=== PATIENT | female | born 1960 | race Caucasian/White ===

== ENCOUNTER 2022-01-20 16:02 | Emergency (ER) | payer OTHER ==
[2022-01-20 16:54] LABS: Epithelial Cells RARE /HPF (FEW); Mucus SLIGHT /HPF (NEGATIVE)
[2022-01-20 16:54] LABS: Absolute Neutrophil Ct (ANC) 7.33 x10^3/uL (1.4-6.9); Basophil (Absolute #) 0.04 x10^3/uL (0-0.4); Hematocrit 34.8 % (35-47); Hemoglobin 10.9 g/dL (12.0-16.0); Lymphocyte (Absolute #) 1.78 x10^3/uL (1.0-4.6); Mean Cell Volume 87.9 fL (78-100); Mean Corpuscular Hemoglobin 27.5 pg (26-32); Mean Corpuscular Hgb Concent. 31.3 g/dL (32-36); Mean Platelet Volume 9.6 fL (7.5-11.0); Monocyte (Absolute #) 0.56 x10^3/uL (0.0-1.3); Monocytes % 5.7 % (0.0-12.0); Neutrophil % 74.3 % (36.0-66.0); Platelet Count 268 x10^3/uL (150-450); Red Blood Count 3.96 x10^6/uL (4.1-5.4); Red Cell Distribution Width 13.9 % (11.5-14.0); White Blood Count 9.9 x10^3/uL (4.0-10.5)
[2022-01-20 16:55] LABS: Appearance CLEAR (CLEAR); Bilirubin NEGATIVE (NEGATIVE); Glucose NEGATIVE (NEGATIVE); Ketones NEGATIVE (NEGATIVE); Nitrite NEGATIVE (NEGATIVE); Protein,Urine Dip NEGATIVE (Negative); RBC SMALL Ery/ul (0-5); Urobilinogen 0.2 mg/dL (0-1)
[2022-01-20 16:56] LABS: Dipstick done @ ? MAIN LAB; Urine Cultured Indicated? YES
[2022-01-20] MEDS ORDERED: TORAdol 30 mg Injection IV ONE (16:58)
[2022-01-20] MEDS ORDERED: Sodium Chloride 0.9% 1000 ML 1,000 ML IV STA (16:58)
--- NOTE | 2022-01-20 17:01 | ERPHSYRPT ---
- History of Present Illness Time Seen by Provider: 01/20/22 16:19 Historian: patient Exam Limitations: no limitations Patient Subjective Stated Complaint: pt states "I have a history of kidney stones. I think I have one again." Triage Nursing Assessment: pt ambulated into the er; pt is axo x4; c/o rt flank pain; pt states 7/10; abd is round, soft; tenderness to RLQ and rt flank region; active bowel sounds in all quads; tachycardic; skin PDW Physician History: 61 years old female presented in the ER with chief complaint of right flank pain since yesterday, moderate intensity, sharp in nature, radiating to right gr oin/suprapubic area, aggravated with movements, activity and better with resting, associated with dysuria. No fever or chills reported. Does report history of kidney stones. Timing/Duration: yesterday, gradual onset, worse Activities at Onset: rest Quality: sharpness Abdominal Pain Onset Location: flank Pain Radiation: groin Severity of Pain-Max: moderate Severity of Pain-Current: moderate Modifying Factors: Improves With: rest. Worsens With: position Associated Symptoms: back, nausea, No vomiting Previous symptoms: no prior history Allergies/Adverse Reactions: No Known Drug Allergies Allergy (Unverified 01/20/22 16:25) Home Medications: Albuterol 2.5 mg/0.5 ml [PROVENTIL Solution 2.5 MG/0.5 ML] 2.5 mg IH Q6HPRN PRN 06/18/21 [History] Albuterol Sulfate [Proair Hfa] 8.5 gm IH Q4-6HPRN PRN 06/18/21 [History] Citalopram Hydrobromide 20 mg* [ceLEXa 20 MG] 10 mg PO DAILY 06/18/21 [History] Loratadine 10 mg [Claritin 10 mg] 10 mg PO DAILY 06/18/21 [History] Meclizine HCl 25 mg [Antivert 25 mg] 25 mg PO DAILY 06/18/21 [History] Ondansetron ODT 4 MG [Zofran Odt 4 mg] 4 mg PO DAILY PRN PRN 06/18/21 [History] Hx Tetanus, Diphtheria Vaccination/Date Given: Yes Hx Influenza Vaccination/Date Given: No Hx Pneumococcal Vaccination/Date Given: No Travel Risk - International Travel Have you traveled outside of the country in past 3 weeks: No - Coronavirus Screening Are you exhibiting any of the following symptoms?: No Close contact with a COVID-19 positive Pt in past 14-21 Days: No - Vaccine Status Have you recieved a Covid-19 vaccination: Yes 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 - Vaccination Dates Date of 2cond Vaccination (if applicable): 2020 - Review of Systems Constitutional: No Symptoms Eyes: No Symptoms Ears, Nose, & Throat: No Symptoms Respiratory: No Symptoms Cardiac: No Symptoms Abdominal/Gastrointestinal: Abdominal Pain Genitourinary Symptoms: Dysuria Musculoskeletal: Back Pain Skin: No Symptoms Neurological: No Symptoms Psychological: No Symptoms Endocrine: No Symptoms Hematologic/Lymphatic: No Symptoms Immunological/Allergic: No Symptoms - Past Medical History Pertinent Past Medical History: Yes Neurological History: No Pertinent History Cardiac History: No Pertinent History Respiratory History: Asthma, Sleep Apnea Endocrine Medical History: No Pertinent History Musculoskeletal History: Arthritis, Degenerative Disk Disease, Fractures Psycho-Social History: Depression Other Medical History: FX LEFT THUMB >5 YEARS AGO, DEPRESSION, kidney stones - Past Surgical History Past Surgical History: Yes Neuro Surgical History: No Pertinent History Cardiac: No Pertinent History Respiratory: No Pertinent History Gastrointestinal: Appendectomy, Cholecystectomy Genitourinary: No Pertinent History Musculoskeletal: No Pertinent History Female Surgical History: Tubal Ligation - Social History Smoking Status: Never smoker Exposure to second hand smoke: No Drug Use: none Patient Lives Alone: No - Nursing Vital Signs Nursing Vital Signs: Initial Vital Signs Temperature 99.6 F 01/20/22 16:28 Pulse Rate 118 H 01/20/22 16:28 Respiratory Rate 16 01/20/22 16:28 Blood Pressure 111/72 01/20/22 16:28 O2 Sat by Pulse Oximetry 95 01/20/22 16:28 Pain Scale Pain Intensity 4 - Physical Exam General Appearance: no apparent distress, alert Eye Exam: PERRL/EOMI Ears, Nose, Throat Exam: normal ENT inspection Neck Exam: normal inspection, supple, full range of motion Respiratory Exam: normal breath sounds, lungs clear Cardiovascular Exam: regular rate/rhythm, normal heart sounds Gastrointestinal/Abdomen Exam: soft, normal bowel sounds, tenderness (Right flank, suprapubic area), No guarding Back Exam: normal inspection, normal range of motion, CVA tenderness (Right side) Extremity Exam: normal inspection, normal range of motion Neurologic Exam: alert, oriented x 3, normal mood/affect Skin Exam: normal color SpO2 Interpretation: normal SpO2: 95 O2 Delivery: Room Air Ordered Tests: Active Orders 24 hr Category Date Time Status ABDOMEN AND PELVIS W/0 CONTRAS [CT] Stat Exams 01/20/22 16:47 Completed CBC W DIFF Stat Lab 01/20/22 16:47 Completed CMP Stat Lab 01/20/22 16:47 Completed CULTURE,URINE Stat Lab 01/20/22 16:48 Received LIPASE Stat Lab 01/20/22 16:47 Completed UA W/RFX CULTURE Stat Lab 01/20/22 16:48 Completed Medication Summary Discontinued Medications Generic Name Dose Route Start Last Admin Trade Name Freq PRN Reason Stop Dose Admin Sodium Chloride 1,000 mls @ 999 mls/hr 01/20/22 16:58 01/20/22 18:33 Sodium Chloride 0.9% 1000 Ml IV 01/20/22 17:58 Infused .Q1H1M STA Infusion Sodium Chloride Confirm 01/20/22 17:19 Sodium Chloride 0.9% 1000 Ml Administered 01/20/22 17:20 Dose 1,000 mls @ ud .ROUTE .STK-MED ONE Ketorolac Tromethamine 30 mg 01/20/22 16:58 01/20/22 17:21 Ketorolac Tromethamine 30 Mg/Ml Inj IV 01/20/22 16:59 30 mg STAT ONE Administration Ketorolac Tromethamine Confirm 01/20/22 17:19 Ketorolac Tromethamine 30 Mg/Ml Inj Administered 01/20/22 17:20 Dose 30 mg .ROUTE .STK-MED ONE Levofloxacin 500 mg 01/20/22 17:55 01/20/22 18:24 Levofloxacin 500 Mg Tablet PO 01/20/22 17:56 500 mg STAT ONE Administration Levofloxacin Confirm 01/20/22 18:24 Levofloxacin 500 Mg Tablet Administered 01/20/22 18:25 Dose 500 mg .ROUTE .STK-MED ONE Metronidazole 500 mg 01/20/22 17:55 01/20/22 18:24 Metronidazole 500 Mg Tablet PO 01/20/22 17:56 500 mg STAT ONE Administration Metronidazole Confirm 01/20/22 18:24 Metronidazole 500 Mg Tablet Administered 01/20/22 18:25 Dose 500 mg .ROUTE .STK-MED ONE Lab/Rad Data: Laboratory Result Diagrams 01/20/22 16:47 01/20/22 16:47 Laboratory Results 01/20/22 01/20/22 01/20/22 Range/Units 16:48 16:47 16:47 WBC 9.9 (4.0-10.5) x10^3/uL RBC 3.96 L (4.1-5.4) x10^6/uL Hgb 10.9 L (12.0-16.0) g/dL Hct 34.8 L (35-47) % MCV 87.9 (78-100) fL MCH 27.5 (26-32) pg MCHC 31.3 L (32-36) g/dL RDW 13.9 (11.5-14.0) % Plt Count 268 (150-450) x10^3/uL MPV 9.6 (7.5-11.0) fL Gran % 74.3 H (36.0-66.0) % Immature Gran % (Auto) 0.6 H (0.00-0.4) % Nucleat RBC Rel Count 0.0 (0.00-0.1) % Eos # (Auto) 0.10 (0-0.5) x10^3/uL Immature Gran # (Auto) 0.06 H (0.00-0.03) x10^3u/L Absolute Lymphs (auto) 1.78 (1.0-4.6) x10^3/uL Absolute Monos (auto) 0.56 (0.0-1.3) x10^3/uL Absolute Nucleated RBC 0.00 (0.00-0.01) x10^3u/L Lymphocytes % 18.0 L (24.0-44.0) % Monocytes % 5.7 (0.0-12.0) % Eosinophils % 1.0 (0.00-5.0) % Basophils % 0.4 (0.0-0.4) % Absolute Granulocytes 7.33 H (1.4-6.9) x10^3/uL Basophils # 0.04 (0-0.4) x10^3/uL Sodium 139 (137-145) mmol/L Potassium 3.5 (3.5-5.1) mmol/L Chloride 104 (98-107) mmol/L Carbon Dioxide 28 (22-30) mmol/L Anion Gap 10.3 (5-15) MEQ/L BUN 9 (7-17) mg/dL Creatinine 0.63 (0.52-1.04) mg/dL Estimated GFR > 60.0 ML/MIN Glucose 110 H (74-106) mg/dL Calcium 8.7 (8.4-10.2) mg/dL Total Bilirubin 0.60 (0.2-1.3) mg/dL AST 17 (14-36) U/L ALT 15 (0-35) U/L Alkaline Phosphatase 87 (38-126) U/L Serum Total Protein 7.4 (6.3-8.2) g/dL Albumin 3.9 (3.5-5.0) g/dL Lipase 39 (23-300) U/L Urinalys Dipstick Clnc MAIN LAB Urine Color YELLOW (YELLOW) Urine Appearance CLEAR (CLEAR) Urine pH 6.0 (5-6) Ur Specific [place] 1.010 (1.005-1.025) POC Urine Protein Conf NEGATIVE (Negative) Urine Ketones NEGATIVE (NEGATIVE) Urine Nitrite NEGATIVE (NEGATIVE) Urine Bilirubin NEGATIVE (NEGATIVE) Urine Urobilinogen 0.2 (0-1) mg/dL Urine Leukocytes MODERATE A (NEGATIVE) Urine WBC (Auto) 11-15 A (0-5) /HPF Urine RBC (Auto) 3-5 A (0-2) /HPF U Epithel Cells (Auto) RARE (FEW) /HPF Urine Bacteria (Auto) NONE (NEGATIVE) /HPF Urine RBC SMALL A (0-5) Armani/ul Urine Mucus (Auto) SLIGHT A (NEGATIVE) /HPF Ur Culture Indicated? YES Urine Glucose NEGATIVE (NEGATIVE) mg/dL - Progress Progress: improved Progress Note: 01/20/22 19:12 61 years old is evaluated for flank pain. She is given fluids and symptomatic treatment, on reevaluation feeling much better. Lab work grossly unremarkable except for UTI and CT abdomen pelvis showing mild sigmoid diverticulitis. She is given a dose of Levaquin along with Flagyl. We will continue with Cipro and Flagyl to go home. No peritoneal signs on repeated evaluation. She does have pain medications at home which she is advised to continue. Discussed signs symptoms of worsening needing return to ER which she seems understanding. Stable for discharge. Counseled pt/family regarding: lab results, diagnosis, need for follow-up, rad results - Departure Departure Disposition: Home Clinical Impression: Acute UTI, Sigmoid diverticulitis, Flank pain Condition: Stable Critical Care Time: No Referrals: JAMES FERRER, [employer] [Primary Care Provider] - Follow up/PCP as directed (1-2 days for reevaluation) Instructions: Flank Pain Additional Instructions: Take pain medications as needed. Drink plenty of fluids. Follow-up with primary care for reevaluation. Return to ER for intractable abdominal pain, nausea vomiting/fever chills etc. Prescriptions: Ciprofloxacin [Cipro 500 MG] 500 mg PO BID #20 tablet Metronidazole 500 mg [Flagyl 500 MG] 500 mg PO TID #30 tablet
[2022-01-20 17:16] LABS: ALBUMIN 3.9 g/dL (3.5-5.0); ALKALINE PHOSPHATASE 87 U/L (38-126); ANION GAP 10.3 MEQ/L (5-15); BLOOD UREA NITROGEN 9 mg/dL (7-17); CHLORIDE 104 mmol/L (98-107); Calcium 8.7 mg/dL (8.4-10.2); Carbon Dioxide 28 mmol/L (22-30); Creatinine 1 0.63 mg/dL (0.52-1.04); EST GLOMERULAR FILTRATION RATE > 60.0 ML/MIN; Glucose 110 mg/dL (74-106); LIPASE 39 U/L (23-300); Potassium 3.5 mmol/L (3.5-5.1); SGOT/AST 17 U/L (14-36); SGPT/ALT 15 U/L (0-35); SODIUM 139 mmol/L (137-145); Total Protein 7.4 g/dL (6.3-8.2)
--- NOTE | 2022-01-20 17:17 | XRAY ---
Indication: Right flank pain. Multiple contiguous axial images obtained through the abdomen and pelvis without contrast using renal stone protocol. Comparison: September 17, 2021 Lung bases remain clear of infiltrate and effusion. Heart not enlarged. Again moderate sized hiatal hernia with partial intrathoracic stomach and omental fat. Right kidney demonstrates a stable nonobstructing punctate calculus and 7 mm lower pole cyst. No new renal calculus or evidence for obstructive uropathy neither system. Again appendectomy and cholecystectomy. Noncontrasted stomach and bowel loops nonobstructed again with scattered descending and sigmoid diverticulosis. Proximal sigmoid colon now demonstrates mild circumferential wall thickening with mild pericolonic stranding favoring acute diverticulitis. No free fluid/air. Remaining liver, pancreas, spleen, adrenal glands, kidneys, ureters, bladder, uterus, and aorta are unremarkable for noncontrast exam. Osseous structures intact again with minimal degenerative changes throughout the spine. Impression: 1. Stable nonobstructing right renal punctate calculus. No new renal calculus or evidence for obstructive uropathy. 2. Again colonic diverticulosis with new mild proximal sigmoid diverticulitis. No complications. 3. Again hiatal hernia with partial intrathoracic stomach/omental fat and minimal degenerative spondylosis.
[2022-01-20] MEDS ORDERED: Sodium Chloride 0.9% 1000 ML 1,000 ML ONE (17:19)
[2022-01-20] MEDS ORDERED: TORAdol 30 mg Injection ONE (17:19)
[2022-01-20] MEDS ORDERED: Flagyl 500 MG PO ONE (17:55)
[2022-01-20] MEDS ORDERED: Levofloxacin 500 MG Tablet PO ONE (17:55)
[2022-01-20] MEDS ORDERED: Levofloxacin 500 MG Tablet ONE (18:24)
[2022-01-20] MEDS ORDERED: Flagyl 500 MG ONE (18:24)
[2022-01-20 19:43] VITALS: BP 101/81; PULSE 99; O2SAT 96
== END 2022-01-20 19:43 | disposition home or self-care (01) ==
LOC: ED 16:02
DX: N39.0 Urinary tract infection, site not specified (principal); K57.32 Diverticulitis of large intestine without perforation or abscess without bleeding; R10.9 Unspecified abdominal pain; R30.0 Dysuria; Z79.899 Other long term (current) drug therapy
CPT/HCPCS: 36000; 36415; 74176; 80053; 81015; 83690; 85025; 87086; 96360; 96374; 99284; J1885; A9270-GY

== ENCOUNTER 2022-07-02 12:41 | Emergency (ER) | payer OTHER ==
--- NOTE | 2022-07-02 13:12 | ERPHSYRPT ---
- History of Present Illness Time Seen by Provider: 07/02/22 13:09 Source: patient Exam Limitations: no limitations Physician History: Patient is 62-year-old female with significant past medical history of osteoarthritis of the knee. Recently patient visited orthopedic surgeon and he gave her steroid injection in her right knee last Monday. Since last 2 to 3 days she started having some pain and swelling on the right knee as well as some chest pain and shoulder pain on the right side of the body. Patient denies any fever chills nausea vomiting or any other symptoms. Patient is able to walk on that knee. Patient denies any redness or swelling at present on the right side of the knee. Method of Injury: other (recent right knee steroid injection) Occurred: yesterday Quality: intermittent Severity of Pain-Max: mild Severity of Pain-Current: mild Lower Extremities Pain: knee: right Modifying Factors: Improves With: nothing Associated Symptoms: none Allergies/Adverse Reactions: No Known Drug Allergies Allergy (Verified 07/02/22 13:16) Home Medications: Albuterol 2.5 mg/0.5 ml [PROVENTIL Solution 2.5 MG/0.5 ML] 2.5 mg IH Q6HPRN PRN 06/18/21 [History] Albuterol Sulfate [Proair Hfa] 8.5 gm IH Q4-6HPRN PRN 06/18/21 [History] Citalopram Hydrobromide 20 mg* [ceLEXa 20 MG] 10 mg PO DAILY 06/18/21 [History] Loratadine 10 mg [Claritin 10 mg] 10 mg PO DAILY 06/18/21 [History] Meclizine HCl 25 mg [Antivert 25 mg] 25 mg PO DAILY 06/18/21 [History] Ondansetron ODT 4 MG [Zofran Odt 4 mg] 4 mg PO DAILY PRN PRN 06/18/21 [History] Hx Tetanus, Diphtheria Vaccination/Date Given: Yes Hx Influenza Vaccination/Date Given: No Hx Pneumococcal Vaccination/Date Given: No Travel Risk - Vaccine Status Have you recieved a Covid-19 vaccination: Yes 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: 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 - Vaccination Dates Date of 2cond Vaccination (if applicable): 2020 - Review of Systems Constitutional: No Fever, No Chills Eyes: No Symptoms Ears, Nose, & Throat: No Symptoms Respiratory: No Cough, No Dyspnea Cardiac: No Chest Pain, No Edema, No Syncope Abdominal/Gastrointestinal: No Abdominal Pain, No Nausea, No Vomiting, No Diarrhea Genitourinary Symptoms: No Dysuria Musculoskeletal: Joint Pain (right knee pain), No Back Pain, No Neck Pain, No Fall Skin: No Symptoms, No Rash Neurological: No Dizziness, No Focal Weakness, No Sensory Changes Psychological: No Symptoms Endocrine: No Symptoms All Other Systems: Reviewed and Negative - Past Medical History Pertinent Past Medical History: Yes Neurological History: No Pertinent History Cardiac History: No Pertinent History Respiratory History: Asthma, Sleep Apnea Endocrine Medical History: No Pertinent History Musculoskeletal History: Arthritis, Degenerative Disk Disease, Fractures Psycho-Social History: Depression Other Medical History: FX LEFT THUMB >5 YEARS AGO, DEPRESSION, kidney stones - Past Surgical History Past Surgical History: Yes Neuro Surgical History: No Pertinent History Cardiac: No Pertinent History Respiratory: No Pertinent History Gastrointestinal: Appendectomy, Cholecystectomy Genitourinary: No Pertinent History Musculoskeletal: No Pertinent History Female Surgical History: Tubal Ligation - Social History Smoking Status: Never smoker Exposure to second hand smoke: No Drug Use: none Patient Lives Alone: No - Nursing Vital Signs Nursing Vital Signs: Initial Vital Signs Temperature 97.2 F 07/02/22 12:47 Pulse Rate 91 H 07/02/22 12:47 Blood Pressure 123/67 07/02/22 12:47 O2 Sat by Pulse Oximetry 96 07/02/22 12:47 Pain Scale Pain Intensity 9 - Physical Exam General Appearance: alert Eyes, Ears, Nose, Throat Exam: moist mucous membranes Neck Exam: non-tender, supple Cardiovascular/Respiratory Exam: chest non-tender, normal breath sounds, regular rate/rhythm, no respiratory distress Gastrointestinal/Abdominal Exam: non-tender, guarding Back Exam: normal inspection, No vertebral tenderness Hips Exam: bilateral: non-tender Legs Exam: bilateral leg: non-tender Knees Exam: right knee: normal inspection, normal range of motion, no evidence of injury, pain Ankle Exam: bilateral ankle: non-tender Foot Exam: bilateral foot: non-tender DTR - Lower Extremities Exam: knee (R): 2+, knee (L): 2+, ankle (R): 2+, ankle (L): 2+ Neuro/Tendon Exam: normal sensation, normal motor functions Mental Status Exam: alert, oriented x 3, cooperative Skin Exam: normal color, warm, dry SpO2 Interpretation: normal O2 Delivery: Room Air - Course Nursing assessment & vital signs reviewed: Yes - Radiology Exams Knee X-ray Interpretation: Reviewed by me, Negative, No Fracture, No Subluxation Ordered Tests: Active Orders 24 hr Category Date Time Status KNEE (3 VIEWS) Stat Exams 07/02/22 12:52 Ordered - Progress Progress: improved, pain not gone completely Counseled pt/family regarding: diagnosis, need for follow-up, rad results Medical Desision Making - Diagnostic Testing Diagnostic test were ordered, analyzed, and reviewed by me: Yes Radiological Interpretation: Reviewed by me - Risk of complications Low Risk: Low risk of morbidity from additional dx testing or treatment - Departure Departure Disposition: Home Clinical Impression: Right anterior knee pain Condition: Stable Critical Care Time: No Referrals: JAMES FERRER [employer] [Primary Care Provider] - Follow up/PCP as directed Instructions: Chronic Knee Pain, Active Range of Motion Exercises, Knees and Ankles Additional Instructions: Discharge/Care Plan ADRIANA ARANGO was seen on 07/02/22 in the Emergency Room. The patient was counseled regarding Diagnosis,Lab results, Imaging studies, need for follow up and when to return to the Emergency Room. Prescriptions given: Discharge Note I have spoken with the patient and/or caregivers. I have explained the patient's condition, diagnosis and treatment plan based on the information available to me at this time. I have answered the patient's and/or caregiver's questions and addressed any concerns. The patient and/or caregivers have as good understanding of the patient's diagnosis, condition and treatment plan as can be expected at this point. The vital signs have been stable. The patient's condition is stable and appropriate for discharge from the emergency department. The patient will pursue further outpatient evaluation with the primary care physician or other designated or consulting physician as outlined in the discharge instructions. The patient and/or caregivers are agreeable to this plan of care and follow-up instructions have been explained in detail. The patient and/or caregivers have received these instruction. The patient/and or caregivers are aware that any significant change in condition or worsening of symptoms should prompt an immediate return to this or the closest emergency department or call 911. JOAQUÍNMarquitaADRIANA Diana was seen on 07/02/22 n the Emergency Room. At that time you were treated for an emergent condition, during your visit Laboratory, Radiology and/or other procedures may have been ordered. It is very important that you follow-up with your Primary Care Physician LISA POWELL within the next 24- 48 hours to review your Emergency Room visit and the final results of testing that was ordered. Some test results such as Urine Cultures, Blood Cultures, and other cultures if ordered will not be finalized for 24-48 hours. If you do not have a Primary Care Provider please call the medical records department at [phone] ext [phone] to obtain a copy of your results or you may sign into our patient portal to obtain these results by visiting us @ [email or web address] and completing the following steps: 1. Click on the Patient Portal link 2. Click the Patient Self Enrollment Link to complete the enrollment form and entering your 3. Once the enrollment form is completed you will receive an email with a temporary ID and password at the email address you provided. 4. Next choose a user name and password. Your user name must be at least 4 characters long and your password must be at least 4 characters long. 5. Choose a security question from the list and provide your answer to the question. If you already have signed into the Health Portal you may access your Health Care Information 26/09 by the following steps: 1. Login to our website @ [email or web address] 2. Enter your original user name and password. FAQS The [facility] Health Portal is an online tool that contains your Lab Results, Radiology Reports, Visit History, Discharge Instructions and Health Summary Lab and Radiology Results will not be available for 72 hours on the portal. The Portal is a secure site, passwords are encryted and URLs are re-written so they cannot be copied and pasted. You and authorized family members are the only ones who can access your Portal. Also there is a timeout feature that protects y our information if you leave the Portal page open. If you have technical difficulty please use the Contact Us link on the page this will allow you to submit any questions you have regarding the Portal or you may contact the Medical Record Department at [phone] ext [phone].
[2022-07-02 13:56] VITALS: BP 108/70; PULSE 62; O2SAT 97
--- NOTE | 2022-07-02 21:13 | XRAY ---
Indication: Pain following injury 5 days ago. Comparison: None 2 view right knee demonstrates osteopenia. No other bony, articular, or soft tissue abnormalities.
== END 2022-07-02 13:56 | disposition home or self-care (01) ==
LOC: ED 12:41
DX: M25.561 Pain in right knee (principal); R07.9 Chest pain, unspecified; M25.511 Pain in right shoulder; Z79.899 Other long term (current) drug therapy
CPT/HCPCS: 73560; 99282

== ENCOUNTER 2022-10-08 09:55 | Emergency (ER) | payer OTHER ==
[2022-10-08 10:08] VITALS: TEMP 98
--- NOTE | 2022-10-08 10:22 | ERPHSYRPT ---
- History of Present Illness Time Seen by Provider: 10/08/22 10:17 Source: patient Exam Limitations: no limitations Patient Subjective Stated Complaint: Pt c/o of left foot pain on the distal end just below the large toe Triage Nursing Assessment: Pt was brought to the ER by her , hypertensive, rates pain as 8/10, pain with palpatation to the left foot, pain with walking due to shoe touching foot, denies injury, no noticable swelling, pu lses normal, cap refill normal, skin n/w/d, doesn't apper to be in any distress Physician History: c/o of left foot pain on the distal end just below the large toe rates pain as 8/10, pain with palpitation to the left foot, pain with walking due to shoe touching foot, denies injury, no noticable swelling, doesn't appear to be in any distress Method of Injury: unknown Occurred: this morning Severity of Pain-Max: moderate Severity of Pain-Current: moderate Lower Extremities Pain: foot: left (pain inbetween 1st and 2nd toe) Modifying Factors: Improves With: nothing Associated Symptoms: none Allergies/Adverse Reactions: No Known Drug Allergies Allergy (Verified 10/08/22 10:08) Home Medications: Albuterol 2.5 mg/0.5 ml [PROVENTIL Solution 2.5 MG/0.5 ML] 2.5 mg IH Q6HPRN PRN 06/18/21 [History] Albuterol Sulfate [Proair Hfa] 8.5 gm IH Q4-6HPRN PRN 06/18/21 [History] Citalopram Hydrobromide 20 mg* [ceLEXa 20 MG] 0.5 tab PO DAILY 06/18/21 [History] Loratadine 10 mg [Claritin 10 mg] 10 mg PO DAILY 06/18/21 [History] Meclizine HCl 25 mg [Antivert 25 mg] 25 mg PO DAILY 06/18/21 [History] Ondansetron ODT 4 MG [Zofran Odt 4 mg] 4 mg PO DAILY PRN PRN 06/18/21 [History] Gabapentin [Neurontin ] 300 mg PO DAILY 10/08/22 [History] Hx Tetanus, Diphtheria Vaccination/Date Given: Yes Hx Influenza Vaccination/Date Given: No Hx Pneumococcal Vaccination/Date Given: No Travel Risk - International Travel Have you traveled outside of the country in past 3 weeks: No - Coronavirus Screening Are you exhibiting any of the following symptoms?: No Close contact with a COVID-19 positive Pt in past 14-21 Days: No - Vaccine Status Have you recieved a Covid-19 vaccination: Yes Med Aide: Moderna - Vaccination Dates Date of 2cond Vaccination (if applicable): 2020 - Review of Systems Constitutional: No Symptoms Eyes: No Symptoms Ears, Nose, & Throat: No Symptoms Respiratory: No Symptoms Cardiac: No Symptoms Abdominal/Gastrointestinal: No Symptoms Genitourinary Symptoms: No Symptoms Musculoskeletal: Other (pain inbetween 1st and 2nd toe left foot) Skin: No Symptoms Neurological: No Symptoms Psychological: No Symptoms Endocrine: No Symptoms Hematologic/Lymphatic: No Symptoms - Past Medical History Pertinent Past Medical History: Yes Neurological History: No Pertinent History Cardiac History: No Pertinent History Respiratory History: Asthma, Sleep Apnea Endocrine Medical History: No Pertinent History Musculoskeletal History: Arthritis, Degenerative Disk Disease, Fractures Psycho-Social History: Depression Other Medical History: FX LEFT THUMB >5 YEARS AGO, DEPRESSION, kidney stones - Past Surgical History Past Surgical History: Yes Neuro Surgical History: No Pertinent History Cardiac: No Pertinent History Respiratory: No Pertinent History Gastrointestinal: Appendectomy, Cholecystectomy Genitourinary: No Pertinent History Musculoskeletal: No Pertinent History Female Surgical History: Tubal Ligation - Social History Smoking Status: Never smoker Exposure to second hand smoke: No Drug Use: none Patient Lives Alone: No - Nursing Vital Signs Nursing Vital Signs: Initial Vital Signs Temperature 98.0 F 10/08/22 10:00 Pulse Rate 61 10/08/22 10:00 Blood Pressure 154/78 10/08/22 10:00 O2 Sat by Pulse Oximetry 97 10/08/22 10:00 Pain Scale Pain Intensity 8 - Physical Exam General Appearance: no apparent distress Eyes, Ears, Nose, Throat Exam: normal ENT inspection Neck Exam: normal inspection Cardiovascular/Respiratory Exam: chest non-tender, normal peripheral pulses, No palpable fracture Gastrointestinal/Abdominal Exam: non-tender Hips Exam: bilateral: non-tender Legs Exam: bilateral leg: non-tender Knees Exam: bilateral knee: non-tender Ankle Exam: bilateral ankle: non-tender Foot Exam: left foot: pain DTR - Lower Extremities Exam: knee (R): 2+, knee (L): 2+, ankle (R): 2+, ankle (L): 2+ Neuro/Tendon Exam: normal sensation, normal motor functions, normal tendon functions, responds to pain, no evidence tendon injury Mental Status Exam: alert, oriented x 3, cooperative Skin Exam: normal color SpO2 Interpretation: normal SpO2: 97 O2 Delivery: Room Air - Course Nursing assessment & vital signs reviewed: Yes - Radiology Exams Foot X-ray Interpretation: Reviewed by me, Negative, No Fracture Ordered Tests: Active Orders 24 hr Category Date Time Status FOOT (MINIMUM 3 VIEWS) Stat Exams 10/08/22 10:05 Ordered - Progress Progress: improved, pain not gone completely Counseled pt/family regarding: diagnosis, need for follow-up, rad results Medical Desision Making - Diagnostic Testing Radiological Interpretation: Interpreted by me - Risk of complications Minimal Risk: Minimal risk of morbidity - Departure Departure Disposition: Home Clinical Impression: Neuroma of foot, Carroll's neuroma of left foot Condition: Stable Critical Care Time: No Referrals: JAMES FERRER FNP [Primary Care Provider] - Follow up/PCP as directed Instructions: Carroll's Neuroma (DC) Additional Instructions: Discharge/Care Plan CONCHITAADRIANA Ortiz was seen on 10/08/22 in the Emergency Room. The patient was counseled regarding Diagnosis,Lab results, Imaging studies, need for follow up and when to return to the Emergency Room. Prescriptions given: Discharge Note I have spoken with the patient and/or caregivers. I have explained the patient's condition, diagnosis and treatment plan based on the information available to me at this time. I have answered the patient's and/or caregiver's questions and addressed any concerns. The patient and/or caregivers have as good understanding of the patient's diagnosis, condition and treatment plan as can be expected at this point. The vital signs have been stable. The patient's condition is stable and appropriate for discharge from the emergency department. The patient will pursue further outpatient evaluation with the primary care physician or other designated or consulting physician as outlined in the discharge instructions. The patient and/or caregivers are agreeable to this plan of care and follow-up instructions have been explained in detail. The patient and/or caregivers have received these instruction. The patient/and or caregivers are aware that any significant change in condition or worsening of symptoms should prompt an immediate return to this or the closest emergency department or call 911. ADRIANA ARANGO was seen on 10/08/22 n the Emergency Room. At that time you were treated for an emergent condition, during your visit Laboratory, Radiology and/or other procedures may have been ordered. It is very important that you follow-up with your Primary Care Physician LISA POWELL within the next 24- 48 hours to review your Emergency Room visit and the final results of testing that was ordered. Some test results such as Urine Cultures, Blood Cultures, and other cultures if ordered will not be finalized for 24-48 hours. If you do not have a Primary Care Provider please call the medical records department at [phone] ext [phone] to obtain a copy of your results or you may sign into our patient portal to obtain these results by visiting us @ [email or web address] and completing the following steps: 1. Click on the Patient Portal link 2. Click the Patient Self Enrollment Link to complete the enrollment form and entering your 3. Once the enrollment form is completed you will receive an email with a temporary ID and password at the email address you provided. 4. Next choose a user name and password. Your user name must be at least 4 characters long and your password must be at least 4 characters long. 5. Choose a security question from the list and provide your answer to the question. If you already have signed into the Health Portal you may access your Health Care Information 26/09 by the following steps: 1. Login to our website @ [email or web address] 2. Enter your original user name and password. FAQS The [facility] Health Portal is an online tool that contains your Lab Results, Radiology Reports, Visit History, Discharge Instructions and Health Summary Lab and Radiology Results will not be available for 72 hours on the portal. The Portal is a secure site, passwords are encryted and URLs are re-written so they cannot be copied and pasted. You and authorized family members are the only ones who can access your Portal. Also there is a timeout feature that protects your information if you leave the Portal page open. If you have technical difficulty please use the Contact Us link on the page this will allow you to submit any questions you have regarding the Portal or you may contact the Medical Record Department at [phone] ext [phone].
[2022-10-08] MEDS ORDERED: TORAdol 30 mg Injection IM ONE (10:23)
[2022-10-08] MEDS ORDERED: TORAdol 30 mg Injection ONE (10:26)
[2022-10-08 10:46] VITALS: BP 130/98; PULSE 74; RESP 18; O2SAT 98
--- NOTE | 2022-10-08 21:56 | XRAY ---
Indication: Pain. No known injury. Comparison: July 20, 2021. 3 nonweightbearing views left foot unchanged again demonstrating osteopenia, mild pes planus, small plantar heel spur, and tiny subcortical cysts 3rd cuneiform/4th metatarsal. No new/acute bony, articular, or soft tissue abnormalities.
== END 2022-10-08 10:43 | disposition home or self-care (01) ==
LOC: ED 09:55
DX: G57.62 Lesion of plantar nerve, left lower limb (principal); M79.672 Pain in left foot; Z79.899 Other long term (current) drug therapy
CPT/HCPCS: 73630; 96372; 99283; J1885

== ENCOUNTER 2023-05-29 08:52 | Day surgery (SDC) | payer OTHER ==
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
[2023-05-29] MEDS ORDERED: Lactated Ringers 1,000 ML IV ONE (09:52)
[2023-05-29] MEDS: Lactated Ringers 1,000 ML IV SCH (09:55)
[2023-05-29 10:04] VITALS: RESP 18; O2SAT 97
[2023-05-29] MEDS ORDERED: DIPRIVAN 200 MG/20 ML IV ONE ×2 (11:53→12:01)
[2023-05-29] MEDS ORDERED: Xylocaine-Mpf 2% 5 Ml Vial ONE (11:53)
[2023-05-29 12:35] VITALS: TEMP 97.7
[2023-05-29 12:39] VITALS: PULSE 90
[2023-05-29 12:40] VITALS: BP 147/57
--- NOTE | 2023-05-29 14:12 | OP ---
SURGERY DATE/TIME: 05/29/2023 1154 PREOPERATIVE DIAGNOSES: 1) Dysphagia. 2) ASA Class III. POSTOPERATIVE DIAGNOSES: 1) Prepyloric ulcer. 2) Erosive gastritis. 3) Small hiatal hernia. 4) Distal esophageal narrowing and spasm. PROCEDURES: 1) EGD with cold biopsy to antrum to evaluate for Helicobacter pylori. 2) Cold biopsy distal esophageal erythema for histology 3) Cold biopsy mid esophagus to evaluate for eosinophilic esophagitis. 4) Distal esophageal dilatation (size 18 balloon dilator) for symptomatic distal esophageal narrowing. SURGEON: Dr. Rik Rao. ANESTHESIA: MAC. ESTIMATED BLOOD LOSS: Minimal. INDICATIONS: As noted above. Risks and benefits explained in detail and not limited to and consent obtained. DESCRIPTION OF PROCEDURE AND FINDINGS: The patient is taken to the endoscopy room. MAC anesthesia introduced. After official time out and no disagreement with planned procedure, bite block positioned. Video gastroscope easily passed down the proximal esophagus. There was a little bit of sawtoothing and some tertiary contractions mid esophagus. Cold biopsy taken mid esophagus at the end of the procedure to evaluate for eosinophilic esophagitis. Otherwise, the distal esophagus had a little bit of erythema. There was no deep erosions or anything. There was a little bit of narrowing and spasm area where she was having symptoms. It was felt that warranted a trial of dilatation at the end of the procedure. The scope passed through the gastroesophageal junction to 34 cm down through the patent pylorus to the junction of the second and third portion of duodenum. Duodenum grossly unremarkable. Scope pulled back into the stomach. She had a small superficial but real prepyloric ulcer. She had some evidence of some erosive gastritis. Cold biopsy to evaluate for Helicobacter pylori. Good hemostasis noted. On retroflex, she did have a little bit of liquidy material in the stomach. There was a small hiatal hernia. Scope straightened. Gastroesophageal junction 34 cm. Again, there was no masses but cold biopsy had been taken in distal esophagus and mid esophagus to evaluate for path. It was felt as she was having symptoms, the patient warranted dilatation. Therefore the scope was passed back down the stomach and a balloon catheter is carefully inserted and pulled back up to narrowed area and carefully inflated first stage for 30 seconds, second stage for 2 minutes. Apparently the 20 dilator was not available so it was dilated up to size 18 this particular case. Otherwise, the balloon catheter was decompressed and withdrawn. The scope was passed through there. Good hemostasis noted. No signs of any full thickness issues or injury secondary to dilatation. It seemed to be more widely patent. The catheter and scope were withdrawn and passed off. Findings discussed with the family out in the waiting area. She is to stay on proton pump inhibitor b.i.d. for a week and then once a day. She will likely need to follow up endoscopy in eight to ten weeks to evaluate for any ulcer there. I will see her back in the office next week.
== END 2023-05-29 13:00 | disposition home or self-care (01) ==
LOC: SDC 08:52
PROVIDERS: ATTEND Surgery
DX: K29.00 Acute gastritis without bleeding (principal); R13.10 Dysphagia, unspecified; K44.9 Diaphragmatic hernia without obstruction or gangrene; K22.2 Esophageal obstruction; Z80.3 Family history of malignant neoplasm of breast; Z80.1 Family history of malignant neoplasm of trachea, bronchus and lung
CPT/HCPCS: 93005; C1726; J2704

== ENCOUNTER 2023-09-29 19:58 | Emergency (ER) | payer OTHER ==
--- NOTE | 2023-09-29 20:07 | ERPHSYRPT ---
- History of Present Illness Time Seen by Provider: 09/29/23 20:07 Source: patient, EMS Exam Limitations: no limitations Physician History: This is a 63-year-old white female patient who is right-handed and underwent a total of 35 allergy testing sites on both of her upper arms bilaterally. The patient was having worsening pain over 4 days and therefore she called the paramedics to transport her to the emergency department to evaluate these tender sites. The left arm hurts worse than the right arm. Patient has not had any fevers. Patient did not have home transportation so they called the paramedics. Patient has a history of hypertension, anxiety, asthma, arthritis and degenerative disc disease. Timing/Duration: day(s) (4), worse Quality: painful Severity: moderate Location: extremities (Bilateral upper lateral arms) Possible Causes: other (Multiple allergic testing sites) Associated Symptoms: other (Tender skin lateral aspect bilateral upper arms) Allergies/Adverse Reactions: No Known Drug Allergies Allergy (Verified 09/29/23 20:04) Home Medications: Albuterol Sulfate [Proair Hfa] 8.5 gm IH Q4-6HPRN PRN 06/18/21 [History] ALPRAZolam [Alprazolam ER] 2 mg PO UD 05/17/23 [History] Amlodipine Besylate 5 mg [Norvasc 5 mg] 5 mg PO DAILY 05/17/23 [History] Fluticasone Furoate [Arnuity Ellipta] 200 mcg IH UD 05/17/23 [History] Hydrocodone/Acetaminophen [Hydrocodone-Acetamin 7.5-325] 1 each PO UD 05/17/23 [History] Hx Tetanus, Diphtheria Vaccination/Date Given: Yes Hx Influenza Vaccination/Date Given: No Hx Pneumococcal Vaccination/Date Given: No Travel Risk - International Travel Have you traveled outside of the country in past 3 weeks: No - Emerging Infectious Disease Are you exhibiting symptoms associated with any current EIDs: No - Review of Systems Constitutional: No Symptoms Eyes: No Symptoms Ears, Nose, & Throat: No Symptoms Respiratory: No Symptoms Cardiac: No Symptoms Abdominal/Gastrointestinal: No Symptoms Genitourinary Symptoms: No Symptoms Musculoskeletal: Other (Pain bilateral upper arms primarily in the area of all ergy testing sites.) Skin: Other (No cellulitis appreciated) Neurological: No Symptoms Psychological: No Symptoms Endocrine: No Symptoms Hematologic/Lymphatic: No Symptoms Immunological/Allergic: No Symptoms All Other Systems: Reviewed and Negative - Past Medical History Pertinent Past Medical History: Yes Neurological History: No Pertinent History Cardiac History: Hypertension Respiratory History: Asthma, Sleep Apnea Endocrine Medical History: No Pertinent History Musculoskeletal History: Arthritis, Degenerative Disk Disease, Fractures Psycho-Social History: Depression Other Medical History: FX LEFT THUMB >5 YEARS AGO, DEPRESSION, kidney stones - Past Surgical History Past Surgical History: Yes Neuro Surgical History: No Pertinent History Cardiac: No Pertinent History Respiratory: No Pertinent History Gastrointestinal: Appendectomy, Cholecystectomy Genitourinary: No Pertinent History Musculoskeletal: No Pertinent History Female Surgical History: Tubal Ligation - Social History Smoking Status: Never smoker Exposure to second hand smoke: No Drug Use: none Patient Lives Alone: No - Nursing Vital Signs Nursing Vital Signs: Initial Vital Signs Temperature 97 F 09/29/23 20:00 Pulse Rate 96 H 09/29/23 20:00 Respiratory Rate 20 09/29/23 20:00 Blood Pressure 156/96 09/29/23 20:00 O2 Sat by Pulse Oximetry 95 09/29/23 20:00 Pain Scale Pain Intensity 7 - Physical Exam General Appearance: no apparent distress, alert, anxiety Eye Exam: PERRL/EOMI, eyes nml inspection Ears, Nose, Throat Exam: normal ENT inspection, moist mucous membranes Neck Exam: normal inspection, non-tender, supple, full range of motion Respiratory Exam: airway intact, No chest tenderness, No respiratory distress Cardiovascular Exam: normal peripheral pulses Gastrointestinal/Abdomen Exam: No tenderness Pelvic Exam: not done Rectal Exam: not done Back Exam: normal inspection, normal range of motion, No CVA tenderness, No vertebral tenderness Extremity Exam: normal range of motion, pelvis stable, other (No evidence of cellulitis in the sites where the allergy testing was performed) Neurologic Exam: alert, oriented x 3, cooperative, multiple needle stitcher II-XII nml as tested, nml cerebellar function, nml station & gait, sensation nml Skin Exam: other (No cellulitis and no abscess present in the allergy testing sites) SpO2 Interpretation: normal O2 Delivery: Room Air - Course Nursing assessment & vital signs reviewed: Yes - Progress Progress: unchanged Progress Note: 09/29/23 20:24 My medical decision making and the assignment of low complexity to this patient's medical issue today is based on review of the patient's past medical history, review of the patient's medication list, review of patient drug allergy list, history present illness and physical findings on examination. The workup in this patient does not require any laboratory radiographic studies. This patient has tenderness/achiness subcutaneously in the regions of her allergy testing sites in the bilateral upper arms. There is no evidence of cellulitis. There is no evidence of abscess. Patient, in my opinion at this time, does not require any antibiotic therapy. We will provide her with a dose of prednisone 20 mg and then remotely send a prescription of prednisone 10 mg orally 3 times a day to her pharmacy. She is also to use ice pack 3-4 times a day for the next 48 hours as well as taking Benadryl 25 mg orally 3 times a day for the next 4 days. Patient is to call her primary care provider and pilot control operator helper on 10/02/2023 to make arranges for follow-up appointment for further evaluation management. Counseled pt/family regarding: diagnosis, need for follow-up Medical Desision Making - Risk of complications The pt has a mod risk of morbidity or mortality based on: Need for prescription drug management - Departure Departure Disposition: Home Clinical Impression: Pain in both upper arms Condition: Stable Critical Care Time: No Referrals: [facility] [Primary Care Provider] - Follow up/PCP as directed Additional Instructions: Keep the allergy testing site clean daily with soap and water. Do not apply any lotions or ointments or creams to the site. Use Tylenol and ibuprofen for pain control if there are no contraindications. Apply an ice pack 3-4 times a day for the next 48 hours. Take your steroids as prescribed. Prescriptions: Prednisone 10 mg [Deltasone 10 mg] 10 mg PO TID #12 tablet
[2023-09-29 20:14] VITALS: RESP 20; TEMP 97
[2023-09-29] MEDS ORDERED: NORCO 5/325 MG ONE (20:31)
[2023-09-29] MEDS ORDERED: DELTASONE 20 MG ONE (20:31)
[2023-09-29] MEDS: DELTASONE 20 MG PO ONE (20:32)
[2023-09-29] MEDS: NORCO 5/325 MG PO ONE (20:32)
[2023-09-29 20:43] VITALS: BP 141/70; PULSE 87; O2SAT 96
== END 2023-09-29 20:43 | disposition home or self-care (01) ==
LOC: ED 19:58
DX: M79.621 Pain in right upper arm (principal); M79.622 Pain in left upper arm; I10 Essential (primary) hypertension; Z79.52 Long term (current) use of systemic steroids; Z79.899 Other long term (current) drug therapy; Z59.82 Transportation insecurity
CPT/HCPCS: 99282; A9270-GY

== ENCOUNTER 2024-01-14 10:52 | Emergency (ER) | payer OTHER ==
[2024-01-14 11:08] VITALS: RESP 18; TEMP 97.8
--- NOTE | 2024-01-14 11:25 | ERPHSYRPT ---
- History of Present Illness Time Seen by Provider: 01/14/24 11:25 Historian: patient Exam Limitations: no limitations Patient Subjective Stated Complaint: pt here for abd pain and pain with urination, she was treated for UTI on 12/23 and finished antibotics. Triage Nursing Assessment: pt alert, walked in, resp easy, skin w/d/p. abd soft, moves all ext well, no edema noted Physician History: The patient, with a history of kidney stones, presents with worsening abdominal and back pain. They have been experiencing worsening abdominal and back pain over the past five to six days. Initially, they visited [facility] on January 23, where imaging ruled out kidney stones. They were prescribed a 250 mg antibiotic, possibly Bactrim, which they took once daily for four days, providing temporary relief before the pain intensified again. They have a history of kidney stones, having had them twice before, which r equired stent placement in both kidneys. The stents were removed earlier this year after treatment for a large stone by doctors in [place] and [place] at [facility]'s office. They report burning during urination but no fever. They have had three normal bowel movements today. For pain management, they took Tylenol at 2:30 AM and have been using a heating pad on their abdomen. They have an ulcer at the top of their stomach but deny any other kidney problems or stomach ulcers. They are not on blood thinners. Timing/Duration: week(s) (1) Activities at Onset: rest Quality: sharpness, throbbing Abdominal Pain Onset Location: epigastric, suprapubic Pain Radiation: no radiation Severity of Pain-Max: moderate Severity of Pain-Current: moderate Modifying Factors: Improves With: nothing. Worsens With: movement, palpation Associated Symptoms: No back, No chest pain, No diaphoresis, No diarrhea, No fever/chills, No loss of appetite, No nausea, No shortness of breath, No vomiting, No weakness Previous symptoms: same symptoms as today Allergies/Adverse Reactions: No Known Drug Allergies Allergy (Verified 01/14/24 11:04) Home Medications: Omeprazole Magnesium [Prilosec] 10 mg PO DAILY 01/14/24 [History] Hx Tetanus, Diphtheria Vaccination/Date Given: Yes Hx Influenza Vaccination/Date Given: No Hx Pneumococcal Vaccination/Date Given: No Immunizations Up to Date: Yes Travel Risk - International Travel Have you traveled outside of the country in past 3 weeks: No - Emerging Infectious Disease Are you exhibiting symptoms associated with any current EIDs: No - Review of Systems All Other Systems: Reviewed and Negative - Past Medical History Pertinent Past Medical History: Yes Neurological History: No Pertinent History ENT History: No Pertinent History Cardiac History: Hypertension Respiratory History: Asthma, Sleep Apnea Endocrine Medical History: No Pertinent History Musculoskeletal History: Arthritis, Degenerative Disk Disease, Fractures GI Medical History: GERD Psycho-Social History: Depression Other Medical History: FX LEFT THUMB >5 YEARS AGO, DEPRESSION, kidney stones - Past Surgical History Past Surgical History: Yes Neuro Surgical History: No Pertinent History Cardiac: No Pertinent History Respiratory: No Pertinent History Gastrointestinal: Appendectomy, Cholecystectomy Genitourinary: No Pertinent History Musculoskeletal: Orthopedic Surgery Female Surgical History: Tubal Ligation Other Surgical History: both knees - Social History Smoking Status: Never smoker Exposure to second hand smoke: No Drug Use: none Patient Lives Alone: No - Social Determinants of Health Will the patient participate in the screening: Declined to provide - Nursing Vital Signs Nursing Vital Signs: Initial Vital Signs Blood Pressure 133/80 01/14/24 11:04 Pain Scale Pain Intensity 2 - Physical Exam General Appearance: no apparent distress, obese Respiratory Exam: normal breath sounds, No respiratory distress Cardiovascular Exam: regular rate/rhythm, normal heart sounds, capillary refill <2 sec, No edema Gastrointestinal/Abdomen Exam: soft, normal bowel sounds, tenderness (suprapubic), No distention, No mass, No guarding, No rebound Back Exam: No CVA tenderness Neurologic Exam: alert, oriented x 3, cooperative Skin Exam: No normal color, No warm, No dry, No rash SpO2 Interpretation: normal SpO2: 98 O2 Delivery: Room Air - Course Nursing assessment & vital signs reviewed: Yes EKG Interpreted by Me: RATE (100), Sinus Rhythm, NORMAL AXIS, NORMAL INTERVALS, NORMAL QRS, NORMAL ST-T Ordered Tests: Active Orders 24 hr Category Date Time Status EKG-ER Only STAT Care 01/14/24 11:25 Completed ABDOMEN AND PELVIS W/0 CONTRAS [CT] Stat Exams 01/14/24 11:48 Completed CBC W DIFF Stat Lab 01/14/24 11:40 Completed CMP Stat Lab 01/14/24 11:40 Completed CULTURE,URINE Stat Lab 01/14/24 11:57 Received LIPASE Stat Lab 01/14/24 11:40 Completed TROPONIN Q4H Lab 01/14/24 11:40 Completed UA W/RFX UR CULTURE Stat Lab 01/14/24 11:57 Completed Medication Summary Discontinued Medications Generic Name Dose Route Start Last Admin Trade Name Ban PRN Reason Stop Dose Admin Levofloxacin/Dextrose 500 mg in 100 mls @ 100 mls/hr 01/14/24 12:45 01/14/24 12:57 Levofloxacin 500mg/100ml D5w IV 01/14/24 13:44 100 mls/hr STAT ONE Administration Levofloxacin/Dextrose Confirm 01/14/24 12:47 Levofloxacin 500mg/100ml D5w Administered 01/14/24 12:48 Dose 500 mg in 100 mls @ ud IV .STK-MED ONE Ketorolac Tromethamine 30 mg 01/14/24 11:27 01/14/24 11:56 Ketorolac Tromethamine 30 Mg/Ml Inj IM 01/14/24 11:28 30 mg STAT ONE Administration Ketorolac Tromethamine Confirm 01/14/24 11:56 Ketorolac Tromethamine 30 Mg/Ml Inj Administered 01/14/24 11:57 Dose 30 mg .ROUTE .STK-MED ONE Metronidazole 500 mg 01/14/24 13:06 01/14/24 13:10 Metronidazole 500 Mg Tablet PO 01/14/24 13:07 500 mg STAT ONE Administration Metronidazole Confirm 01/14/24 13:09 Metronidazole 500 Mg Tablet Administered 01/14/24 13:10 Dose 500 mg .ROUTE .STK-MED ONE Lab/Rad Data: Laboratory Result Diagrams 01/14/24 11:40 01/14/24 11:40 Laboratory Results 01/14/24 01/14/24 01/14/24 Range/Units 11:57 11:40 11:40 WBC (3.98-10.04) x10^3/uL RBC (3.93-5.22) x10^6/uL Hgb (11.2-15.7) g/dL Hct (34.1-44.9) % MCV (79.4-94.8) fL MCH (25.6-32.2) pg MCHC (32.2-35.5) g/dL RDW (11.7-14.4) % Plt Count (182-369) x10^3/uL MPV (9.4-12.3) fL Gran % (34.0-71.1) % Immature Gran % (Auto) (0.001-0.429) % Nucleat RBC Rel Count (0.00-0.2) % Eos # (Auto) (0.04-0.36) x10^3/uL Immature Gran # (Auto) (0.001-0.031) x10^3u/L Absolute Lymphs (auto) (1.18-3.74) x10^3/uL Absolute Monos (auto) (0.24-0.86) x10^3/uL Absolute Nucleated RBC (0.00-0.012) x10^3u/L Lymphocytes % (19.3-51.7) % Monocytes % (4.7-12.5) % Eosinophils % (0.7-5.8) % Basophils % (0.1-1.2) % Absolute Granulocytes (1.56-6.13) x10^3/uL Basophils # (0.01-0.08) x10^3/uL Sodium 141 (135-145) mmol/L Potassium 4.0 (3.5-5.1) mmol/L Chloride 104 (98-107) mmol/L Carbon Dioxide 31 H (22-30) mmol/L Anion Gap 10.4 (5-15) MEQ/L BUN 11 (7-17) mg/dL Creatinine 0.72 (0.52-1.04) mg/dL Estimated GFR 93.3 ML/MIN Glucose 104 (74-106) mg/dL Calcium 9.3 (8.4-10.2) mg/dL Total Bilirubin 0.60 (0.2-1.3) mg/dL AST 21 (14-36) U/L ALT 17 (0-35) U/L Alkaline Phosphatase 89 (38-126) U/L Troponin I < 0.012 (0.000-0.033) ng/mL Serum Total Protein 6.9 (6.3-8.2) g/dL Albumin 3.9 (3.5-5.0) g/dL Lipase 74 (23-300) U/L Urine Color Yellow (Yellow) Urine Appearance Cloudy A (Clear) Urine pH 6.5 (4.6-8.0) Ur Specific [place] 1.020 (1.005-1.030) Urine Protein Trace A (Negative) Urine Glucose (UA) Negative (Negative) mg/dL Urine Ketones Negative (Negative) Urine Blood Small A (Negative) Urine Nitrite Negative (Negative) Urine Bilirubin Negative (Negative) Urine Urobilinogen 1.0 A (0.2) mg/dL Ur Leukocyte Esterase Large A (Negative) U Hyaline Cast (Auto) 3-5 A (0-2) /LPF Urine Microscopic RBC 6-10 A (0-5) /HPF Urine Microscopic WBC 51-100 A (0-5) /HPF Ur Epithelial Cells Many A (None Seen) /HPF Urine Bacteria Few A (None Seen) /HPF Urine Culture Reflexed YES (NO) 01/14/24 Range/Units 11:40 WBC 9.2 (3.98-10.04) x10^3/uL RBC 4.39 (3.93-5.22) x10^6/uL Hgb 12.0 (11.2-15.7) g/dL Hct 37.8 (34.1-44.9) % MCV 86.1 (79.4-94.8) fL MCH 27.3 (25.6-32.2) pg MCHC 31.7 L (32.2-35.5) g/dL RDW 14.6 H (11.7-14.4) % Plt Count 276 (182-369) x10^3/uL MPV 9.7 (9.4-12.3) fL Gran % 77.8 H (34.0-71.1) % Immature Gran % (Auto) 0.5 H (0.001-0.429) % Nucleat RBC Rel Count 0.0 (0.00-0.2) % Eos # (Auto) 0.07 (0.04-0.36) x10^3/uL Immature Gran # (Auto) 0.05 H (0.001-0.031) x10^3u/L Absolute Lymphs (auto) 1.36 (1.18-3.74) x10^3/uL Absolute Monos (auto) 0.52 (0.24-0.86) x10^3/uL Absolute Nucleated RBC 0.00 (0.00-0.012) x10^3u/L Lymphocytes % 14.8 L (19.3-51.7) % Monocytes % 5.7 (4.7-12.5) % Eosinophils % 0.8 (0.7-5.8) % Basophils % 0.4 (0.1-1.2) % Absolute Granulocytes 7.16 H (1.56-6.13) x10^3/uL Basophils # 0.04 (0.01-0.08) x10^3/uL Sodium (135-145) mmol/L Potassium (3.5-5.1) mmol/L Chloride (98-107) mmol/L Carbon Dioxide (22-30) mmol/L Anion Gap (5-15) MEQ/L BUN (7-17) mg/dL Creatinine (0.52-1.04) mg/dL Estimated GFR ML/MIN Glucose (74-106) mg/dL Calcium (8.4-10.2) mg/dL Total Bilirubin (0.2-1.3) mg/dL AST (14-36) U/L ALT (0-35) U/L Alkaline Phosphatase (38-126) U/L Troponin I (0.000-0.033) ng/mL Serum Total Protein (6.3-8.2) g/dL Albumin (3.5-5.0) g/dL Lipase (23-300) U/L Urine Color (Yellow) Urine Appearance (Clear) Urine pH (4.6-8.0) Ur Specific [place] (1.005-1.030) Urine Protein (Negative) Urine Glucose (UA) (Negative) mg/dL Urine Ketones (Negative) Urine Blood (Negative) Urine Nitrite (Negative) Urine Bilirubin (Negative) Urine Urobilinogen (0.2) mg/dL Ur Leukocyte Esterase (Negative) U Hyaline Cast (Auto) (0-2) /LPF Urine Microscopic RBC (0-5) /HPF Urine Microscopic WBC (0-5) /HPF Ur Epithelial Cells (None Seen) /HPF Urine Bacteria (None Seen) /HPF Urine Culture Reflexed (NO) - Progress Progress: improved Progress Note: Abdominal Pain with Dysuria Presents with worsening abdominal pain and dysuria. History of kidney stones with previous interventions including stent placements and recent removal of a large stone earlier this year. Pain initially responded to a 4-day course of an tibiotics (likely Bactrim) but has since worsened over the past 5-6 days. Reports no fever but experiences burning during urination and constant back pain. Differential diagnosis includes recurrent kidney stones, urinary tract infection, diverticulitis. Discussed the need for a repeat CT scan. Explained that the CT scan is a non-invasive imaging technique with minimal risks and is essential for accurate diagnosis. Discussed pain management options including the use of acetaminophen and heating pads, which they have already been using. - Order CT scan - Prescribe pain management as needed - Advise to follow up with primary care physician on as scheduled CT shows signs diverticulitis, started on Levofloxacin and Flagyl. Will dc home on 7 days of abx. Toradol tablets sent to pharmacy for as needed use. Follow up with PCP. Counseled pt/family regarding: lab results, diagnosis, need for follow-up, rad results Medical Desision Making - Diagnostic Testing Diagnostic test were ordered, analyzed, and reviewed by me: Yes Radiological Interpretation: Interpreted by me, Reviewed by me, Teleradiologist Report - Risk of complications The pt has a mod risk of morbidity or mortality based on: Need for prescription drug management - Departure Departure Disposition: Home Clinical Impression: UTI (urinary tract infection), Diverticula, colon, Diverticulitis Condition: Good Critical Care Time: No Referrals: MARTHA CASTRO NP [Primary Care Provider] - Follow up/PCP as directed Instructions: Diverticulitis Prescriptions: Metronidazole 500 mg [Flagyl 500 MG] 500 mg PO TID 7 Days #21 tablet levoFLOXacin [Levofloxacin] 750 mg PO DAILY 7 Days #7 tablet Ketorolac Trometh 10 mg Tab [TORAdol 10 MG TABLET] 10 mg PO TID PRN 5 Days #15 tablet PRN Reason: Pain
[2024-01-14 11:41] LABS: Absolute Neutrophil Ct (ANC) 7.16 x10^3/uL (1.56-6.13); BASOPHIL % 0.4 % (0.1-1.2); Basophil (Absolute #) 0.04 x10^3/uL (0.01-0.08); Eosinophil % 0.8 % (0.7-5.8); Eosinophil (Absolute #) 0.07 x10^3/uL (0.04-0.36); Hematocrit 37.8 % (34.1-44.9); IMMATURE GRAN # 0.05 x10^3u/L (0.001-0.031); IMMATURE GRAN % 0.5 % (0.001-0.429); Lymphocyte (Absolute #) 1.36 x10^3/uL (1.18-3.74); Lymphocytes % 14.8 % (19.3-51.7); Mean Cell Volume 86.1 fL (79.4-94.8); Mean Corpuscular Hemoglobin 27.3 pg (25.6-32.2); Mean Corpuscular Hgb Concent. 31.7 g/dL (32.2-35.5); Mean Platelet Volume 9.7 fL (9.4-12.3); Monocyte (Absolute #) 0.52 x10^3/uL (0.24-0.86); Monocytes % 5.7 % (4.7-12.5); Neutrophil % 77.8 % (34.0-71.1); Platelet Count 276 x10^3/uL (182-369); Red Blood Count 4.39 x10^6/uL (3.93-5.22); Red Cell Distribution Width 14.6 % (11.7-14.4); White Blood Count 9.2 x10^3/uL (3.98-10.04)
[2024-01-14] MEDS ORDERED: TORAdol 30 mg Injection ONE (11:56)
[2024-01-14] MEDS: TORAdol 30 mg Injection IM ONE (11:56)
[2024-01-14 11:58] LABS: ALBUMIN 3.9 g/dL (3.5-5.0); ANION GAP 10.4 MEQ/L (5-15); BILIRUBIN,TOTAL 0.6 mg/dL (0.2-1.3); Calcium 9.3 mg/dL (8.4-10.2); Creatinine 1 0.72 mg/dL (0.52-1.04); EST GLOMERULAR FILTRATION RATE 93.3 ML/MIN; Total Protein 6.9 g/dL (6.3-8.2)
[2024-01-14 12:05] LABS: Appearance Cloudy (Clear); Bacteria Few /HPF (None Seen); Bilirubin Negative (Negative); Blood Small (Negative); Epithelial Cells Many /HPF (None Seen); Glucose, Urine Negative (Negative); Ketones Negative (Negative); Leukocyte Esterase Large (Negative); Nitrite Negative (Negative); Ph 6.5 (4.6-8.0); Protein,Urine Dip Trace (Negative); WBC 51-100 /HPF (0-5)
[2024-01-14 12:29] VITALS: PULSE 97
[2024-01-14] MEDS ORDERED: LEVOFLOXACIN 750MG/150ML D5W 750 MG/150 ML BAG IV ONE (12:31)
--- NOTE | 2024-01-14 12:45 | XRAY ---
CLINICAL HISTORY: abd pain COMPARISON: 01/20/2022 TECHNIQUE: Non-contrast CT of the abdomen and pelvis was performed, with the following protocol: axial images, and reconstructed coronal and sagittal images. No intravenous contrast was administered. One of the following dose reduction techniques was utilized for this exam: Automated exposure control, adjustment of the mA and/or kV according to patient size, and use of iterative reconstruction. FINDINGS: Abdomen: Liver: Normal in size, shape, and density. No focal lesions, cysts, or masses were identified. Gallbladder and Biliary System: Surgically removed with a clear surgical bed. Prominent CBD likely post-cholecystectomy Pancreas: Pancreatic head, body, and tail are visualized and appear normal in size and density. No pancreatic masses or calcifications were noted. Spleen: Normal in size, shape, and density. No splenic lesions or masses were identified. Kidneys and Adrenal Glands: Both kidneys are normal in size, shape, and position. Cortical thickness is within normal limits. No renal calculi or hydronephrosis. Two right renal cortical cysts largest measuring 8 mm. Adrenal glands are unremarkable. Appendix: The appendix is not visualized with right iliac fossa surgical clips likely removed. Pelvis: Urinary Bladder: Inadequately filled. Uterus: Normal in size and contour. No masses or abnormal thickening. Ovaries: Not well visualized but no gross abnormalities noted. Cervix: No evidence of mass or abnormal thickening. Peritoneal and Retroperitoneal Structures: No free fluid or abnormal fluid collections were identified within the abdomen or pelvis. No pathological lymphadenopathy was noted. Bowel: Evidence of left-sided lower abdomen multiple colonic diverticulae surrounded by significant fat stranding and regional inflammatory lymph nodes raises the possibility of acute diverticulitis, no free air or abscess formation was identified. Ascending colon submucosal edema is noted likely suggestive of colitis for clinical correlation. No evidence of bowel obstruction. Bones and Soft Tissues: Pelvic bones are unremarkable. No fractures. Right gluteal region small subcutaneous calcified mass measures 7 mm. Right lung lower lobe non-calcified nodule measures about 14 mm ( axial cuts 01/125 ), would recommend dedicated study. IMPRESSION: 1. Evidence of left-sided lower abdomen multiple colonic diverticulae surrounded by significant fat stranding and regional inflammatory lymph nodes raises the possibility of acute diverticulitis, no free air or abscess formation was identified. Unchanged 2. Ascending colon submucosal edema is likely suggestive of colitis for clinical correlation. Unchanged 3. Right renal cortical cysts. 4. No significant interval changes. Electronically Signed by: Rachel Clement MD. (01/14/2024 12:40:35 EST)
[2024-01-14] MEDS ORDERED: Levofloxacin 500MG/100ML D5W 500 MG/100 ML BAG IV ONE (12:47)
[2024-01-14] MEDS: Levofloxacin 500MG/100ML D5W 500 MG/100 ML BAG IV ONE (12:57)
[2024-01-14] MEDS ORDERED: Flagyl 500 MG ONE (13:09)
[2024-01-14] MEDS: Flagyl 500 MG PO ONE (13:10)
[2024-01-14 14:02] VITALS: BP 93/64
[2024-01-14 16:38] VITALS: O2SAT 98
== END 2024-01-14 14:14 | disposition home or self-care (01) ==
LOC: ED 10:52
DX: N39.0 Urinary tract infection, site not specified (principal); K57.30 Diverticulosis of large intestine without perforation or abscess without bleeding; K57.92 Diverticulitis of intestine, part unspecified, without perforation or abscess without bleeding; R10.9 Unspecified abdominal pain; M54.6 Pain in thoracic spine; R30.0 Dysuria; I10 Essential (primary) hypertension; Z79.899 Other long term (current) drug therapy
CPT/HCPCS: 36000; 36415; 74176; 80053; 81001; 83690; 84484; 85025; 87086; 93005; 96372; 96374; 96375; 99284; 99285; J1885; J1956; A9270-GY